=== PATIENT | female | born 1970 | race Caucasian/White ===

== ENCOUNTER 2019-02-13 03:36 | Emergency (ER) | payer BC ==
[2019-02-13 04:14] LABS: Absolute Monocytes 0.6 K/uL (0.1-1.3); Eosinophils % 0.7 % (0-4.4); Lymphocytes % 29.6 % (15.3-44.8); MPV 8.8 fL (7.6-11.3); Monocytes % 9.5 % (3.3-12.3); RBC Red Blood Cell Count 4.09 M/uL (3.86-4.86)
[2019-02-13] MEDS ORDERED: DEXAMETHASONE 10 MG/ML VIAL ONE (04:18)
[2019-02-13] MEDS ORDERED: MORPHINE 4 MG/ML SYR ONE ×2 (04:19→06:39)
[2019-02-13] MEDS ORDERED: DIAZEPAM 5 MG TABLET ONE (04:19)
[2019-02-13] MEDS ORDERED: KETOROLAC 30 MG/ML INJ ONE (04:19)
[2019-02-13] MEDS ORDERED: ONDANSETRON 4 MG/2 ML VIAL ONE (04:20)
[2019-02-13 04:31] LABS: Urine Blood 2+ (NEG); Urine Glucose NEGATIVE (NEG); Urine Protein NEGATIVE (NEG)
[2019-02-13 04:37] LABS: ALT/SGPT 18 U/L (12-78); AST/SGOT 12 U/L (15-37); Albumin 3.7 g/dL (3.4-5.0); Alkaline Phosphatase 70 U/L (45-117); BUN Blood Urea Nitrogen 14 mg/dL (7-18); Bicarbonate 22 mmol/L (21-32); Bilirubin Total 0.2 mg/dL (0.2-1.0); Glucose Level 83 mg/dL (74-106); Potassium 3.2 mmol/L (3.5-5.1); Protein, Total 6.9 g/dL (6.4-8.2); Sodium Level 143 mmol/L (136-145)
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
[2019-02-13] MEDS ORDERED: POTASSIUM 25 MEQ EFFERV TAB ONE (06:39)
--- NOTE | 2019-02-14 11:40 | RAD REPORT ---
EXAM DESCRIPTION: CT - Spine Lumbar Wo Con - 02/13/2019 6:10 am CLINICAL HISTORY: 48-year-old female with back pain radiating down right leg with right leg numbness x3 weeks. TECHNIQUE: Multiple high-resolution thin axial CT images were performed through the lumbar spine fol lowed by sagittal and coronal reconstructed images. The CT study is performed according to ALARA (as low as reasonably achievable) or ALARA/IMAGE GENTLY, with automatic adjustment of mA and/or kV accord ing to patient size. Performed on: 02/13/2019 at 5: 15 AM COMPARISON: None FINDINGS: The lumbar vertebrae are normal in height. There is normal alignment of the vertebrae. T he disc spaces are well preserved in height. Bone mineralization is normal. There is normal alignment of the facet joints on the parasagittal images. There are no significant de generative changes of the lumbar spine. There is no evidence of acute fracture or subluxation. There is no significant canal stenosis. Th ere is right L3-L4 neural foraminal stenosis secondary to a right foraminal disc protrusion which con tacts and may displace the exiting right L3 nerve root. The remainder of the neural foramina are gr ossly patent. The paravertebral and paraspinal soft tissues are unremarkable. IMPRESSION: 1. No evidence of acute osseous injury involving the lumbar spine. 2. Right L3-L4 neural foraminal stenosis secondary to a right foraminal disc protrusion which appears to contact and may displace the exiting right L3 nerve root. Electronically signed by: Rona Smalls DO 02/13/2019 6:05 AM CDT Due to temporary technical issues with the PACS/Fluency reporting system, reports are being signed by the in house radiologist as a courtesy to ensure prompt reporting. The interpreting radiologist is f ully responsible for the content of the report.
== END 2019-02-13 06:55 | disposition home or self-care (01) ==
LOC: ER 03:36
DX: M54.31 Sciatica, right side (principal); M48.061 Spinal stenosis, lumbar region without neurogenic claudication; M51.26 Other intervertebral disc displacement, lumbar region; E87.6 Hypokalemia
CPT/HCPCS: 36415; 72131; 80053; 81003; 81025; 85025; 96374; 96375; 99284; J1100; J2405

== ENCOUNTER 2019-03-15 09:40 | Emergency (ER) | payer BC ==
--- OUTSIDE RECORDS SUMMARY | 2019-03-15 10:02 | XMS REPORT | Clinical Summary ---
:1970 Author Organization [facility] Address [address] [place] [address] Care Team Providers Name Role Phone Jorge Hatfield MD Primary Care Provider Allergies No Known Allergies Medications Medication Sig Dispensed Refills Start Date End Date Status gabapentin Take 1 capsule 90 capsule 1 03/11/2019 04/10/2019 Active (NEURONTIN) 300 (300 mg total) mg capsule by mouth 3 (three) times a day for 30 days. traMADol (ULTRAM) Take 1 tablet 40 tablet 0 03/11/2019 03/25/2019 Active 50 mg tablet by mouth every 4-6 hours as needed for pain. gabapentin Take 1 capsule 90 capsule 1 02/18/2019 03/02/2019 Discontinued (NEURONTIN) 100 (100 mg total) mg capsule by mouth 3 (three) times a day for 30 days. gabapentin Take 1 capsule 30 capsule 1 03/02/2019 03/11/2019 Discontinued (NEURONTIN) 300 (300 mg total) mg capsule by mouth 3 (three) times a day for 30 days. Active Problems No known active problems Encounters Date Type Specialty Care Team Description 03/11/2019 Orders Only Orthopedic Surgery Issa Virgen MD 03/02/2019 Orders Only Orthopedic Surgery Issa Virgen MD 02/28/2019 Hospital Encounter Radiology Issa Virgen MD 02/25/2019 Office Visit Orthopedic Surgery Issa Virgen Other spondylosis with radiculopathy, lumbar region (Primary Dx); MD Derek Right lumbar radiculopathy 02/18/2019 Office Visit Orthopedic Surgery Vipin Lisa Right lumbar radiculopathy (Primary Dx); DANN Edwards Other spondylosis with radiculopathy, lumbar region 02/14/2019 Emergency Emergency Medicine Matthew Wilson DO after 03/14/2018 Family History Medical History Relation Name Comments Stroke Father Jacob Wright 2 minor strokes Relation Name Status Comments Father Jacob Wright Social History Tobacco Use Types Packs/Day Years Used Date Never Smoker 0 0 Smokeless Tobacco: Never Used Alcohol Use Drinks/Week oz/Week Comments Not Currently Sex Assigned at Date Recorded Not on file Job Start Date Occupation Industry Not on file Not on file Not on file Travel History Travel Start Travel End No recent travel history available. Last Filed Vital Signs Not on file Plan of Treatment Date Type Specialty Care Team Description 03/28/2019 Office Visit [place] [id number] [place] [address] Health Maintenance Due Date Last Done Comments INFLUENZA VACCINE 03/31/2019 Procedures Procedure Name Priority Date/Time Associated Diagnosis Comments MRI SPINE EXTERNAL Routine 02/21/2019 2:03 PM Results for this STUDY CDT procedure are in the results section. after 03/14/2018 Results MRI Spine External Study (02/21/2019 2:03 PM CDT) Specimen Narrative Performed At This exam was not acquired at a [facility] facility and has not been [facility] interpreted by a [facility] Provider.The exam was imported into our imaging system for comparisons purposes. Performing Organization Address City/State/Zipcode Phone Number [facility] [address] [place] [address] after 03/14/2018 Advance Directives Patient has advance care planning documents on file. For more information, please contact:[address] [address]
--- NOTE | 2019-03-15 10:38 | ER ---
Nurse's Notes [facility] Name: Katlyn Pandey Age: 48 yrs Sex: Female : 1970 Arrival Date: 03/15/2019 Time: 09:42 Bed 20 Private MD: Diagnosis: Angioneurotic edema;Urticaria Presentation: 03/15 09:43 Presenting complaint: Patient states: paulo been taking tramadol and gabapentin and i hj think im allergic to it; i took Benadryl this AM; reports hives and bumps and lip swelling; denies SOB;. Transition of care: patient was not received from another setting of care. Anaphylaxis evaluation, no signs or symptoms of anaphylaxis were noted. Onset of symptoms was March 15, 2019. Risk Assessment: Do you want to hurt yourself or someone else? Patient reports no desire to harm self or others. Initial Sepsis Screen: Does the patient meet any 2 criteria? No. Patient's initial sepsis screen is negative. Does the patient have a suspected source of infection? No. Patient's initial sepsis screen is negative. Care prior to arrival: None. 09:43 Method Of Arrival: Ambulatory 09:43 Acuity: LAWRENCE 4 09:47 Onset: The symptoms/episode began/occurred 2 days ago. Triage Assessment: 09:57 General: Appears in no apparent distress. comfortable, Behavior is cooperative, bp appropriate for age, anxious. Pain: Denies pain. EENT: LOWER LIP SWELLING NOT INVOLVING AIRWAY. Neuro: No deficits noted. Cardiovascular: No deficits noted. Respiratory: Airway is patent Respiratory effort is even, unlabored, Respiratory pattern is regular, symmetrical. GI: No signs and/or symptoms were reported involving the gastrointestinal system. : No signs and/or symptoms were reported regarding the genitourinary system. Derm: No deficits noted. Musculoskeletal: No deficits noted. 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 - Social history:: Smoking status: Patient/guardian denies using tobacco. - Ebola Screening: : No symptoms or risks identified at this time. Screenin:58 Abuse screen: Denies threats or abuse. Denies injuries from another. Nutritional bp screening: No deficits noted. Tuberculosis screening: No symptoms or risk factors identified. Fall Risk None identified. Assessment: 09:58 General: SEE TRIAGE NOTE. Respiratory: Airway is patent Respiratory effort is even, bp unlabored, Respiratory pattern is regular, symmetrical, Breath sounds are clear bilaterally. 10:51 Reassessment: PT D/C HOME AMBULATORY WITH FAMILY, DX WITH ANGIONEUROTIC EDEMA. bp Vital Signs: 09:46 BP 134 / 85; Pulse 77; Resp 18; Temp 97.9(TE); Pulse Ox 99% on R/A; Weight 64.86 kg; hj Height 5 ft. 2 in. (157.48 cm); Pain 0/10; 09:59 BP 147 / 114; Pulse 65; Resp 16; Pulse Ox 99% ; bp 10:52 BP 112 / 66; Pulse 65; Resp 16; Temp 98; Pulse Ox 99% ; bp 09:46 Body Mass Index 26.15 (64.86 kg, 157.48 cm) ED Course: 09:42 Patient arrived in ED. as 09:44 Triage completed. hj 09:46 Arm band placed on left wrist. hj 09:53 Jorge Brambila, RN is Primary Nurse. bp 09:58 Patient has correct armband on for positive identification. Bed in low position. Call bp light in reach. Side rails up X2. Adult w/ patient. 10:00 Alexandro Stringer MD is Attending Physician. gs 10:52 No provider procedures requiring assistance completed. Patient did not have IV access bp during this emergency room visit. Administered Medications: No medications were administered Outcome: 10:37 Discharge ordered by . gs 10:52 Discharged to home ambulatory, with family. bp 10:52 Condition: stable 10:52 Discharge instructions given to patient, Instructed on discharge instructions, follow up and referral plans. medication usage, Demonstrated understanding of instructions, follow-up care, medications, Prescriptions given X 3. 10:53 Patient left the ED. bp Signatures: Alix Lee Henry, RN RN Alexandro Stringer MD MD Jorge Brambila, RN RN bp Corrections: (The following items were deleted from the chart) 09:48 09:46 Pulse 77bpm; Resp 18bpm; Pulse Ox 99% RA; Temp 97.9F Temporal; 64.86 kg; Height 5 hj ft. 2 in.; BMI: 26.1; Pain 0/10; hj
--- NOTE | 2019-03-15 10:38 | EDPHYS ---
Physician Documentation [facility] Name: Katlyn Pandey Age: 48 yrs Sex: Female : 1970 Arrival Date: 03/15/2019 Time: 09:42 Bed 20 Private MD: ED Physician Alexandro Stringer HPI: 03/15 11:42 This 48 yrs old Female presents to ER via Ambulatory with complaints of gs Allergic Reaction. 11:42 The patient presents with localized swelling, rash. Onset: The symptoms/episode gs began/occurred 2 day(s) ago. Associated signs and symptoms: Pertinent negatives: abdominal pain, Altered mental status chest pain, shortness of breath, Syncope. Possible causes: narcotic. Severity of symptoms: At their worst the symptoms were mild in the emergency department the symptoms are unchanged. The patient has experienced a previous episode. The patient has been recently seen by a physician:. 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 - Social history:: Smoking status: Patient/guardian denies using tobacco. - Ebola Screening: : No symptoms or risks identified at this time. ROS: 11:42 All other systems are negative. gs Exam: 11:42 Head/Face: Normocephalic, atraumatic. Eyes: Pupils equal round and reactive to light, gs extra-ocular motions intact. Lids and lashes normal. Conjunctiva and sclera are non-icteric and not injected. Cornea within normal limits. Periorbital areas with no swelling, redness, or edema. Neck: Trachea midline, no thyromegaly or masses palpated, and no cervical lymphadenopathy. Supple, full range of motion without nuchal rigidity, or vertebral point tenderness. No Meningismus. Chest/axilla: Normal chest wall appearance and motion. Nontender with no deformity. No lesions are appreciated. Cardiovascular: Regular rate and rhythm with a normal S1 and S2. No gallops, murmurs, or rubs. Normal PMI, no JVD. No pulse deficits. Respiratory: Lungs have equal breath sounds bilaterally, clear to auscultation and percussion. No rales, rhonchi or wheezes noted. No increased work of breathing, no retractions or nasal flaring. Abdomen/GI: Soft, non-tender, with normal bowel sounds. No distension or tympany. No guarding or rebound. No evidence of tenderness throughout. Back: No spinal tenderness. No costovertebral tenderness. Full range of motion. MS/ Extremity: Pulses equal, no cyanosis. Neurovascular intact. Full, normal range of motion. Neuro: Awake and alert, GCS 15, oriented to person, place, time, and situation. Cranial nerves II-XII grossly intact. Motor strength 5/5 in all extremities. Sensory grossly intact. Cerebellar exam normal. Normal gait. 11:42 Constitutional: The patient appears in no acute distress, alert, awake. 11:42 ENT: Mouth: Lips: right corner of mouth, slight swelling right lateral lower lip, floor of mouth normal airway patent. 11:42 Skin: rash a mild rash is noted, rash can be described as urticarial, on the right tricep. Vital Signs: 09:46 BP 134 / 85; Pulse 77; Resp 18; Temp 97.9(TE); Pulse Ox 99% on R/A; Weight 64.86 kg; hj Height 5 ft. 2 in. (157.48 cm); Pain 0/10; 09:59 BP 147 / 114; Pulse 65; Resp 16; Pulse Ox 99% ; bp 10:52 BP 112 / 66; Pulse 65; Resp 16; Temp 98; Pulse Ox 99% ; bp 09:46 Body Mass Index 26.15 (64.86 kg, 157.48 cm) MDM: 10:34 Patient medically screened. 11:42 Differential diagnosis: angioedema, urticaria. Data reviewed: vital signs, nurses gs notes. Counseling: I had a detailed discussion with the patient and/or guardian regarding: the historical points, exam findings, and any diagnostic results supporting the discharge/admit diagnosis, the need for outpatient follow up. Response to treatment: There is no appreciated change of the patient's symptoms at this time, and as a result, I will discharge patient. 11:51 Counseling: I had a detailed discussion with the patient and/or guardian regarding: the gs presence of at least one elevated blood pressure reading (>120/80) during this emergency department visit. Special discussion: I have referred the patient to see his PCP for further evaluation of high blood pressure. Administered Medications: No medications were administered Disposition: 03/15/19 10:37 Discharged to Home. Impression: Angioneurotic edema, Urticaria. - Condition is Stable. - Discharge Instructions: Hives, Angioedema, [id number], Managing Your Hypertension. - Prescriptions for Pepcid 20 mg Oral Tablet - take 1 tablet by ORAL route every 12 hours for 5 days; 10 tablet. Prednisone 20 mg Oral Tablet - take 1 tablet by ORAL route once daily for 5 days; 5 tablet. Zyrtec 10 mg Oral Tablet - take 1 tablet by ORAL route once daily .; 5 tablet. - Medication Reconciliation Form, Thank You Letter, Antibiotic Education, Prescription Opioid Use form. - Follow up: Private Physician; When: 1 - 2 days; Reason: Re-evaluation by your physician. Signatures: Jesus Campuzano RN RN Alexandro Stringer MD MD Jorge Brambila RN RN bp Corrections: (The following items were deleted from the chart) 10:53 10:37 03/15/2019 10:37 Discharged to Home. Impression: Angioneurotic edema; Urticaria. bp Condition is Stable. Forms are Medication Reconciliation Form, Thank You Letter, Antibiotic Education, Prescription Opioid Use. Follow up: Private Physician; When: 1 - 2 days; Reason: Re-evaluation by your physician. poncho
== END 2019-03-15 10:53 | disposition home or self-care (01) ==
LOC: ER 09:40
DX: T78.3XXA Angioneurotic edema, initial encounter (principal)
CPT/HCPCS: 99282